=== PATIENT | female | born 1945 | race Caucasian/White ===

== ENCOUNTER → 2018-05-14 07:41 | Outpatient (CLI) | payer OTHER, SELFPAY ==
--- NOTE | 2018-05-14 07:45 | BI_ITS ---
MAMMOGRAPHY - BILATERAL SCREENING REASON FOR EXAM: Female, 72 years old. Routine annual screening examination. PERTINENT HISTORY: Non-contributory. TECHNIQUE: Digital bilateral breast nic (3D mammographic acquisition) in the CC and MLO projections. 2-D mediolateral oblique (MLO) and craniocaudad (CC) views of both breasts were obtained. CAD: Full Field Digital Mammography with Computer Added Detection was performed. COMPARISON: Comparison is made with prior study dated May 04, 2017 and April 17, 2016. FINDINGS: Breast Composition: The breasts are heterogeneously dense, which may obscure small masses. There are no dominant masses or suspicious calcifications. No other significant abnormalities are identified. There has been no significant change since the prior study. BI/SCREENING MAMM (CAD), BILAT IMPRESSION: Stable bilateral screening mammogram. Yearly follow-up mammogram recommended. (A) ASSESSMENT CATEGORY: BIRADS Category 1: Negative. A letter regarding these results will be sent to the patient by the facility within 30 days. Approximately 10% of breast cancers are not detected by mammography. A normal mammogram should not delay biopsy of a clinically suspicious abnormality. [id number] Electronically Signed: Glenn Akers MD at 9:38 EDT Tel [phone], Service support ,
== END ==
PROVIDERS: Family Provider Family Medicine; PCP Family Medicine; Visit Provider Obstetrics & Gynecology
DX: Z12.31 Encounter for screening mammogram for malignant neoplasm of breast (principal)
CPT/HCPCS: 77063; 77067

== ENCOUNTER → 2019-05-20 07:01 | Outpatient (CLI) | payer OTHER, SELFPAY ==
--- NOTE | 2019-05-20 07:04 | BI_ITS ---
MAMMOGRAPHY - BILATERAL SCREENING REASON FOR EXAM: Female, 73 years old. Routine annual screening examination. PERTINENT HISTORY: Non-contributory. TECHNIQUE: Digital bilateral breast maurisio (3D mammographic acquisition) in the CC and MLO projections. 2-D mediolateral oblique (MLO) and craniocaudad (CC) views of both breasts were obtained. CAD: Full Field Digital Mammography with Computer Added Detection was performed. COMPARISON: Comparison is made with prior study dated May 14, 2018 and May 04, 2017. FINDINGS: Breast Composition: The breasts are heterogeneously dense, which may obscure small masses. There are no dominant masses or suspicious calcifications. No other significant abnormalities are identified. There has been no significant change since the prior study. BI/SCREEN MAMM (CAD) W/MAURISIO BILAT IMPRESSION: Stable bilateral screening mammogram. Yearly follow-up mammogram recommended. (A) ASSESSMENT CATEGORY: BIRADS Category 1: Negative. A letter regarding these results will be sent to the patient by the facility within 30 days. Approximately 10% of breast cancers are not detected by mammography. A normal mammogram should not delay biopsy of a clinically suspicious abnormality. [id number] Electronically Signed: Glenn Akers, at 9:25 EDT , Service support ,
== END ==
PROVIDERS: Family Provider Family Medicine; PCP Family Medicine; Referring Provider Obstetrics & Gynecology; Visit Provider Obstetrics & Gynecology
DX: Z12.31 Encounter for screening mammogram for malignant neoplasm of breast (principal)
CPT/HCPCS: 77063; 77067

== ENCOUNTER → 2020-07-13 10:56 | Outpatient (CLI) | payer MEDICARE, SELFPAY ==
[2020-07-02 08:35] VITALS: BMI 20.1
--- NOTE | 2020-07-13 10:58 | BI_ITS ---
MAMMOGRAPHY - BILATERAL SCREENING REASON FOR EXAM: Female, 75 years old. Routine annual screening examination. PERTINENT HISTORY: Non-contributory. TECHNIQUE: Digital bilateral breast maurisio (3D mammographic acquisition) in the CC and MLO projections. 2-D mediolateral oblique (MLO) and craniocaudad (CC) views of both breasts were obtained. CAD: Full Field Digital Mammography with Computer Added Detection was performed. COMPARISON: Comparison is made with prior study 05/20/2019 and 05/14/2018. FINDINGS: Breast Composition: The breasts are heterogeneously dense, which may obscure small masses. There are no dominant masses or suspicious calcifications. No other significant abnormalities are identified. There has been no significant change since the prior study. BI/SCREEN MAMM (CAD) W/MAURISIO BILAT IMPRESSION: Stable bilateral screening mammogram. Yearly follow-up mammogram recommended. (A) ASSESSMENT CATEGORY: BIRADS Category 1: Negative. A letter regarding these results will be sent to the patient by the facility within 30 days. Approximately 10% of breast cancers are not detected by mammography. A normal mammogram should not delay biopsy of a clinically suspicious abnormality. [id number] Electronically Signed: Glenn Akers, at 12:31 EDT , Service support ,
== END ==
PROVIDERS: PCP Family Medicine; Referring Provider Student in an Organized Health Care Education/Training Program; Visit Provider Student in an Organized Health Care Education/Training Program
DX: Z12.31 Encounter for screening mammogram for malignant neoplasm of breast (principal)
CPT/HCPCS: 77063; 77067

== ENCOUNTER → 2021-08-23 13:06 | Outpatient (CLI) | payer MEDICARE, SELFPAY ==
--- NOTE | 2021-08-23 13:09 | BI_ITS ---
MAMMOGRAPHY - BILATERAL SCREENING REASON FOR EXAM: Female, 76 years old. Routine annual screening examination. PERTINENT HISTORY: Non-contributory. TECHNIQUE: Digital bilateral breast maurisio (3D mammographic acquisition) in the CC and MLO projections. 2-D mediolateral oblique (MLO) and craniocaudad (CC) views of both breasts were obtained. CAD: Full Field Digital Mammography with Computer Added Detection was performed. COMPARISON: Comparison is made with prior study 07/13/2020 and 05/20/2019. FINDINGS: Breast Composition: The breasts are heterogeneously dense, which may obscure small masses. There are no dominant masses or suspicious calcifications. No other significant abnormalities are identified. There has been no significant change since the prior study. BI/SCRN MAMM (CAD)W/MAURISIO BILAT IMPRESSION: Stable bilateral screening mammogram. Yearly follow-up mammogram recommended. (A) ASSESSMENT CATEGORY: BIRADS Category 1: Negative. A letter regarding these results will be sent to the patient by the facility within 30 days. Approximately 10% of breast cancers are not detected by mammography. A normal mammogram should not delay biopsy of a clinically suspicious abnormality. [id number] Electronically Signed: Glenn Akers MD at 14:19 EST , Service support ,
== END ==
PROVIDERS: PCP Family Medicine; Referring Provider Student in an Organized Health Care Education/Training Program; Visit Provider Student in an Organized Health Care Education/Training Program
DX: Z12.31 Encounter for screening mammogram for malignant neoplasm of breast (principal)
CPT/HCPCS: 77063; 77067

== ENCOUNTER → 2022-09-03 | Outpatient (CLI) | payer MEDICARE, SELFPAY | END | disposition home or self-care (01) | LOC: WOBLAB 11:07 | PROVIDERS: PCP Family Medicine; Visit Provider Student in an Organized Health Care Education/Training Program | DX: N39.0 Urinary tract infection, site not specified (principal) | CPT/HCPCS: 36415; 87086; 87088 ==

== ENCOUNTER → 2022-09-12 | Outpatient (CLI) | payer MEDICARE, SELFPAY ==
--- NOTE | 2022-09-12 14:03 | BI_ITS ---
MAMMOGRAPHY - BILATERAL SCREENING REASON FOR EXAM: Female, 77 years old. Routine annual screening examination. PERTINENT HISTORY: Non-contributory. TECHNIQUE: Digital bilateral breast maurisio (3D mammographic acquisition) in the CC and MLO projections. 2-D mediolateral oblique (MLO) and craniocaudad (CC) views of both breasts were obtained. CAD: Full Field Digital Mammography with Computer Added Detection was performed. COMPARISON: Comparison is made with prior study dated 08/23/2021 and 07/13/2020. FINDINGS: Breast Composition: The breasts are heterogeneously dense, which may obscure small masses. There are no dominant masses or suspicious calcifications. No other significant abnormalities are identified. There has been no significant change since the prior study. BI/SCRN MAMM (CAD)W/MAURISIO BILAT IMPRESSION: Stable bilateral screening mammogram. Yearly follow-up mammogram recommended. (A) ASSESSMENT CATEGORY: BIRADS Category 1: Negative. A letter regarding these results will be sent to the patient by the facility within 30 days. Approximately 10% of breast cancers are not detected by mammography. A normal mammogram should not delay biopsy of a clinically suspicious abnormality. [id number] Electronically Signed: Glenn Akers MD at 15:13 EST ,
== END | disposition home or self-care (01) ==
LOC: OPBI 14:01
PROVIDERS: PCP Family Medicine; Referring Provider Student in an Organized Health Care Education/Training Program; Visit Provider Student in an Organized Health Care Education/Training Program
DX: Z12.31 Encounter for screening mammogram for malignant neoplasm of breast (principal)
CPT/HCPCS: 77063; 77067

== ENCOUNTER → 2023-10-15 | Outpatient (CLI) | payer MEDICARE, SELFPAY ==
--- NOTE | 2023-10-15 10:58 | BI_ITS ---
MAMMOGRAPHY - BILATERAL SCREENING REASON FOR EXAM: Female, 78 years old. Routine annual screening examination. PERTINENT HISTORY: Non-contributory. TECHNIQUE: Digital bilateral breast maurisio (3D mammographic acquisition) in the CC and MLO projections. 2-D mediolateral oblique (MLO) and craniocaudad (CC) views of both breasts were obtained. CAD: Full Field Digital Mammography with Computer Added Detection was performed. COMPARISON: Comparison is made with prior study dated September 12, 2022 and August 23, 2021. FINDINGS: Breast Composition: The breasts are heterogeneously dense, which may obscure small masses. There are no dominant masses or suspicious calcifications. No other significant abnormalities are identified. There has been no significant change since the prior study. BI/SCRN MAMM (CAD)W/MAURISIO BILAT IMPRESSION: Stable bilateral screening mammogram. Yearly follow-up mammogram recommended. (A) ASSESSMENT CATEGORY: BIRADS Category 1: Negative. A letter regarding these results will be sent to the patient by the facility within 30 days. Approximately 10% of breast cancers are not detected by mammography. A normal mammogram should not delay biopsy of a clinically suspicious abnormality. [id number] Electronically Signed: Glenn Akers MD at 13:55 EST ,
--- OUTSIDE RECORDS SUMMARY | 2023-10-15 11:44 | XMS RPT_ITS | CCD ---
Author Name Unknown Address [address] [place] [address] Organization [facility] Care Team Providers Care Police Officer Booking Name Role Phone Iva Gaston Unavailable Unavailable Iva Gaston Unavailable Unavailable Shu Nicholson Unavailable Unavailable GEORGE WARD DO Primary Care Physician [phone] Marleen PT, Christina Unavailable Unavailable HERI AMES, DR BENITEZ Attending UnavailGEORGE Nicole DO Primary Care Unavailable GEORGE WARD DO Primary Care Unavailable GEORGE WARD DO Attending Unavailable TUYET JERRY CNP Attending UnavailGEORGE Nicole DO Primary Care Unavailable GEORGE WARD DO Primary Care Unavailable DR EMMANUEL LIRIANO MD Attending UnavailGEORGE Nicole DO Primary Care Unavailable GEORGE WARD DO Attending Unavailable DR EMMANUEL LIRIANO MD Attending UnavailGEORGE Nicole DO Primary Care Unavailable MARCELINO CHESTER DO Attending Unavailable GEORGE WARD DO Primary Care Unavailable DR EMMANUEL LIRIANO MD Attending UnavailGEORGE Nicole DO Primary Care Unavailable IVANA LEWIS CNP Attending Unavailable GEORGE WARD DO Primary Care Unavailable MARCELINO CHESTER DO Attending Unavailable GEORGE WARD DO Primary Care Unavailable Allergies Allergy Classification Reported Allergen(s) Allergy Type Date of Onset Reaction(s) Facility (20 sources) etanercept; Translations: [Etanercept] drug allergy 5 Rash [facility] Work Phone: (20 sources) hydroxychloroquine; Translations: [Hydroxychloroquine] drug allergy 5 Abdominal pain [facility] Work Phone: [phone] (3 sources) nitrofurantoin drug allergy 5 [facility] Work Phone: [phone] (20 sources) sulfamethoxazole / trimethoprim; Translations: [Sulfamethoxazole / Trimethoprim] drug allergy 5 Rash [facility] Work Phone: [phone] (17 sources) NITROFURANTOIN, MACROCRYSTALS / Nitrofurantoin, Monohydrate; Translations: [nitrofurantoin] Drug Allergy Altered sensation of skin (finding) [facility] Work Phone: Medications Current Medications Medication Drug Class(es) Dates Sig (Normalized) Sig (Original) 1 ml abatacept 125 mg/ml prefilled syringe (18 sources) Selective T Cell Costimulation Modulator Start: 05-24-2019 [place] Prefilled Syringe 125 mg/mL subcutaneous solution Dose = 125 mg, Subcutaneous, qWeek, (rotate injection sites), 4 EA, 0 Refill(s), Syringe Start Date: 05/24/19 Status: Ordered Completed/Discontinued Medications Medication Drug Class(es) Dates Sig (Normalized) Sig (Original) cefdinir 300 mg oral capsule (5 sources) Cephalosporin Antibacterial Start: 02-27-2022 cefdinir 300 mg oral capsule Dose : 300 mg = 1 cap(s), Oral, q12h, 0 Refill(s), 50.4 Start Date: 02/27/22 Status: Ordered cholecalciferol 2000 unt oral tablet (9 sources) Vitamin D Start: 01-10-2016 take 1 tablet by mouth once daily VITAMIN D 2000 UNIT TABS One tablet by mouth daily CHOLECALCIFEROL [id number] Ken Huertas MD Problems Active Problems Problem Classification Problem Date Documented Da te Episodic/Chronic Cardiac dysrhythmias (17 sources) Bradycardia 12-13-2019 Episodic Chronic ulcer of skin (1 source) Pressure ulcer of buttock stage 1 09-16-2023 Chronic Complications of surgical procedures or medical care (3 sources) Postoperative hypothyroidism; Translations: [Postprocedural hypothyroidism] Chronic Disorders of lipid metabolism (20 sources) Hyperlipidemia; Translations: [Hypercholesterolemi a] Onset: 01-04-2016 01-04-2016 Chronic Heart valve disorders (20 sources) Mitral valve prolapse; Translations: [Mitral valve regurgitation] Onset: 01-04-2016 01-04-2016 Chronic Mycoses (17 sources) Candidiasis of vulva 09-09-2019 Episodic Osteoarthritis (2 sources) Osteoarthritis of knee; Translations: [Bilateral primary osteoarthritis of knee] Chronic Other aftercare (3 sources) Long-term current use of drug therapy; Translations: [Other word processing specialist (current) drug therapy] Episodic Other aftercare (1 source) Drug monitoring done; Translations: [Encounter for therapeutic drug level monitoring] Episodic Other bone disease and musculoskeletal deformities (17 sources) Osteopenia 09-09-2019 Episodic Other endocrine disorders (7 sources) Hypoglycemia 10-31-2022 Chronic Other eye disorders (1 source) Exophthalmos; Translations: [Unspecified exophthalmos] Chronic Other inflammatory condition of skin (17 sources) Psoriasis 09-09-2019 Chronic Other liver diseases (17 sources) Elevated liver enzymes level 12-13-2019 Episodic Other nutritional; endocrine; and metabolic disorders (5 sources) Body mass index less than 20 03-17-2023 Episodic Other screening for suspected conditions (not mental disorders or infectious disease) (5 sources) Viral screening status 03-17-2023 Episodic Other skin disorders (1 source) Non-scarring alopecia; Translations: [Nonscarring hair loss, unspecified] Episodic Residual codes; unclassified (16 sources) Needs influenza immunization 09-03-2021 Episodic Rheumatoid arthritis and related disease (20 sources) Rheumatoid arthritis; Translations: [Rheumatoid arthritis of multiple joints] 09-09-2019 Chronic Screening and history of mental health and substance abuse codes (8 sources) Ex-tobacco user 08-27-2022 Episodic Sprains and strains (11 sources) Other specified sites of sprains and strains; Translations: [Shoulder strain] Onset: 03-28-2015 04-01-2015 Episodic Thyroid disorders (20 sources) Thyroid eye disease; Translations: [Hypothyroidism] 04-26-2019 Chronic Unclassified (20 sources) Patient encounter status 12-13-2019 Unclassified (8 sources) Influenza vaccination status 08-27-2022 Unclassified (5 sources) Mild pulmonary hypertension 03-17-2023 Urinary tract infections (2 sources) Urinary tract infectious disease 06-04-2023 Episodic Past or Other Problems Problem Classification Problem Date Documented Da te Episodic/Chronic Abdominal pain (8 sources) Lower abdominal pain; Translations: [Suprapubic pain] Onset: 06-04-2023 06-04-2023 Episodic Other aftercare (3 sources) Other jail (current) drug therapy; Translations: [Other word processing specialist (current) drug therapy] Onset: 01-04-2016 01-04-2016 Episodic Unclassified (3 sources) FH: Hypertension; Translations: [Family history of ischemic heart disease and other diseases of the circulatory system] 01-10-2016 Episodic Results Test Name Value Interpretation Reference Range Facil ity Vital Signs Date Time Vital Sign Value Performing Clinician Caty zavala 03-20-2017 09:16-0400 BMI (Body Mass Index) 20.1 kg/m2 Iva [facility] Work Phone: 03-20-2017 09:16-0400 BP Diastolic 64 mm[Hg] Iva Alek [facility] Work Phone: 03-20-2017 09:16-0400 BP Systolic 102 mm[Hg] Iva [facility] Work Phone: 03-20-2017 09:16-0400 Pulse (Heart Rate) 60 /min Iva [facility] Work Phone: 03-20-2017 09:16-0400 Respiratory Rate 16 /min Iva [facility] Work Phone: 03-20-2017 09:16-0400 Weight 53.52 kg Ivatameka [facility] Work Phone: 01-10-2016 15:26-0400 BMI (Body Mass Index) 20.1 kg/m2 [facility]u [facility] Work Phone: 01-10-2016 15:26-0400 BP Diastolic 60 mm[Hg] Joeyumi DeFinis [facility] Work Phone: 01-10-2016 15:26-0400 BP Systolic 98 mm[Hg] Shu DeFinis [facility] Work Phone: 01-10-2016 15:26-0400 BSA (Body Surface Area) 1.57 m2 [facility] Work Phone: 01-10-2016 15:26-0400 Pulse (Heart Rate) 64 /min [facility]u [facility] Work Phone: 01-10-2016 15:26-0400 Respiratory Rate 12 /min [facility] Work Phone: 01-10-2016 15:26-0400 Weight 53.52 kg Shu [facility] Work Phone: 03-28-2015 11:25-0400 Body Temperature 97.1 [degF] [facility] Work Phone: 03-28-2015 11:25-0400 Height 163.19 cm [facility]u [facility] Work Phone: 03-28-2015 11:25-0400 Pulse Oximetry 100 % [facility]u [facility] Work Phone: Encounters Encounter Date Encounter Type Care Provider Facility Start: 09-22-2023 End: 09-23-[address] EMMANUEL LIRIANO MD Facility:B Start: 09-22-2023 End: 09-22-[address] EMMANUEL LIRIANO MD [facility] Start: 06-04-2023 End: 06-09-2023 ambulatory GEORGE WARD DO Facility:B Start: 06-04-2023 End: 06-08-2023 Outreach Lab GEORGE WARD DO [facility] Start: 06-03-2023 End: 06-04-2023 ambulatory GEORGE WARD DO Facility:B Start: 06-03-2023 End: 06-03-[address] EMMANUEL LIRIANO MD [facility] Start: 03-17-2023 End: 03-18-2023 ambulatory TUYET JERRY CNP Facility:B Start: 03-17-2023 End: 03-17-2023 Patient encounter procedure GEORGE WARD DO [facility] Start: 03-17-2023 End: 03-17-2023 Well adult monitoring check done GEORGE WARD DO [facility] Start: 03-11-2023 End: 03-12-[address] EMMANUEL LIRIANO MD Facility:B Start: 03-11-2023 End: 03-11-[address] EMMANUEL LIRIANO MD [facility] Start: 02-27-2023 End: 02-28-2023 ambulatory IVANA LEWIS [facility] Facility:B Start: 02-17-2023 End: 02-18-2023 ambulatory MARCELINO CHESTER DO Facility:B Start: 12-09-2022 End: 12-10-[address] EMMANUEL LIRIANO MD Facility:B Start: 12-09-2022 End: 12-09-[address] EMMANUEL LIRIANO MD [facility] Start: 10-29-2022 End: 10-30-2022 ambulatory MARCELINO CHESTER DO Facility:B Start: 10-29-2022 End: 10-29-2022 Patient encounter procedure MARCELINO CHESTER DO [facility] Start: 07-23-2022 End: 07-23-[address] EMMANUEL LIRIANO MD [facility] Start: 06-26-2022 End: 06-26-2022 Patient encounter procedure MARCELINO CHESTER DO [facility] Start: 04-24-2022 End: 04-24-[address] EMMANUEL LIRIANO MD [facility] Start: 04-10-2022 End: 04-10-2022 Patient encounter procedure TUYET JERRY GENERAL SUPERINTENDENT [facility] Start: 03-03-2022 End: 03-03-2022 Patient encounter procedure SABINA SHELTON DO [facility] Start: 02-11-2022 End: 02-11-2022 Patient encounter procedure MARCELINO Bledsoe HENRIK DO [facility] Start: 01-28-2022 End: 01-28-[address] EMMANUEL LIRIANO MD [facility] Start: 10-31-2021 End: 10-31-[address] EMMANUEL LIRIANO MD [facility] Start: 08-26-2021 End: 08-26-2021 Patient encounter procedure GEORGE M ED DO [facility] Procedures Date Procedure Procedure Detail Performing Clinician Start: 03-20-2017 End: 03-20-2017 Follow Up Appt 1 year Ken Muñoz Start: 03-20-2017 End: 03-20-2017 PFM Ken Huertas MD Start: 01-10-2016 End: 01-10-2016 Electrocardiogram, complete Ken méndez MD Start: 01-10-2016 End: 03-17-2017 Follow Up Appt 1 year Ken Muñoz Start: 01-10-2016 End: 03-17-2017 Follow Up Appt Other Ken Huertas MD Start: 01-10-2016 End: 03-17-2017 PFM Ken Huertas MD Start: 03-28-2015 End: 03-29-2015 Documentation of current medications Gaby Kay Work Phone: Excision & repair ey elid < one-fourth lid margin GEORGE WARD DO Extraction of cataract KRIST IN ED DO Plan of Treatment Date Care Activity Detail Author Start: 03-20-2017 End: 03-20-2017 Appointment Appointment [facility] Work Phone: Start: 03-20-2017 End: 03-20-2017 Follow Up Appt 1 year Follow Up Appt 1 year [facility] Work Phone: Start: 03-20-2017 End: 03-20-2017 PFM PFM [facility] Work Phone: Start: 01-10-2016 End: 01-10-2016 Electrocardiogram, complete EKG (In office) [facility] Work Phone: Start: 01-10-2016 End: 03-17-2017 Follow Up Appt 1 year Follow Up Appt 1 year [facility] Work Phone: Start: 01-10-2016 End: 03-17-2017 Follow Up Appt Other Follow Up Appt Other [facility] Work Phone: Start: 01-10-2016 End: 03-17-2017 PFM PFM [facility] Work Phone: Immunizations Immunization Date Immunization Notes Care Provider [facility] 08-13-2023 RSV vaccine preF3, recombinant DR EMMANUEL LIRIANO MD [facility] 08-04-2023 SARS-CoV-2 (COVID-19 ) [id number] DR EMMANUEL LIRIANO MD [facility] 07-21-2023 influenza virus vacc ine, unspecified formulation DR EMMANUEL LIRIANO MD [facility] 02-11-2023 SARS-CoV-2 (CV19)mRNA-[address] EMMANUEL LIRIANO MD [facility] 02-11-2023 SARSCoV2 (CV19)mRNA-1273(6y+ bival valdemar GEORGE WARD DO [facility] 07-28-2022 influenza virus vacc ine, unspecified formulation MARCELINO CHESTER DO [facility] 07-15-2022 SARS-CoV-2 (CV19)mRNA-[address] EMMANUEL LIRIANO MD [facility] 07-15-2022 SARSCoV2 (CV19)mRNA-1273(6y+ bival valdemar MARCELINO CHESTER DO [facility] 01-15-2022 SARS-CoV-2 (COVID-19 ) mRNA-1273 vaccine TUYET CLARITZA MILLER [facility] 07-16-2021 influenza virus vacc ine, unspecified formulation DR EMMANUEL LIRIANO MD [facility] 06-12-2021 COVID-19, mRNA, LNP- S, PF, 100 mcg/ 0.5 mL dose; Translations: [Moderna COVID-19 Vaccine] GEORGE WARD DO [facility] 01-01-2021 COVID-19, mRNA, LNP- S, PF, 100 mcg/ 0.5 mL dose; Translations: [Moderna COVID-19 Vaccine] GEORGE WARD DO [facility] 12-04-2020 COVID-19, mRNA, LNP- S, PF, 100 mcg/ 0.5 mL dose; Translations: [Moderna COVID-19 Vaccine] GEORGE WARD DO [facility] 06-27-2020 influenza virus vacc ine, unspecified formulation GEORGE WARD DO [facility] 07-18-2019 influenza virus vacc ine, unspecified formulation GEORGE LIONLAY DO [facility] 07-16-2018 zoster vaccine recombinant GEORGE WARD DO [facility] 07-01-2018 influenza virus vacc ine, unspecified formulation GEORGE WARD DO [facility] 06-23-2018 zoster vaccine recombinant GEORGE WARD DO [facility] 04-13-2018 zoster vaccine recombinant GEORGE WARD DO [facility] 07-21-2017 influenza virus vacc ine, unspecified formulation GEORGE ED DO [facility] 06-21-2016 influenza virus vacc ine, unspecified formulation GEORGE ED DO [facility] 07-12-2015 influenza virus vacc ine, unspecified formulation GEORGE WARD DO [facility] 07-05-2015 pneumococcal conjuga te vaccine, 13 valent GEORGE ED DO [facility] 08-12-2014 influenza virus vacc ine, unspecified formulation GEORGE WARD DO [facility] 08-12-2014 pneumococcal polysaccharide vaccine, 23 valent GEORGE WARD DO [facility] 07-12-2014 pneumococcal polysaccharide vaccine, 23 valent GEORGE WARD DO [facility] 07-08-2012 influenza virus vacc ine, unspecified formulation GEORGE WARD DO [facility] 08-15-2009 zoster vaccine, live GEORGE ED DO [facility] 07-07-2006 tetanus toxoid, redu lilliam diphtheria toxoid, and acellular pertussis vaccine, adsorbed GEORGE ED DO [facility] Payers Date Payer Category Payer Unknown [id number] 1945 Unknown [id number] 2.16.8 [id number] 1945 Unknown [id number] 2.16.8 [id number] 1945 Unknown [id number] 2.16.8 [id number] 1945 Unknown [id number] 2.16.8 [id number] 1945 Unknown [id number] 2.16.8 [id number] 1945 Unknown [id number] 2.16.8 [id number] 1945 Unknown [id number] 2.16.8 [id number] 1945 Unknown [id number] 2.16.8 [id number] 1945 Unknown [id number] 2.16.8 [id number] 1945 Unknown [id number] 2.16.8 [id number] Social History Date Type Detail Facility Start: 04-26-2019 Ex-smoker (finding) [facility] Clinical Notes 06-07-2023 LaboratoryLaboratoryLaboratoryRadiologyRadiologyRadiology Note Date & Type Note Facility 06-07-2023 Note . MICRO - Microbiology PROCEDURE: Urine Culture [*1] SOURCE: Urine, Clean Catch BODY SITE: COLLECTED DATE/TIME: 06/04/2023 17:15 EDT RECEIVED DATE/TIME: 06/05/2023 15:08 EDT START DATE/TIME: 06/05/2023 15:08 EDT FREE TEXT SOURCE: FINAL REPORTS Final Report [] Verified Date/Time/Personnel: 06/07/2023 09:18 EDT <10,000 cfu/ml. No Significant growth. Sensitivity not indicated. PRELIMINARY REPORTS Preliminary Report [] Verified Date/Time/Personnel: 06/06/2023 13:06 EDT No growth to date Performing Locations *1: This test was performed at: [facility], [address] [place] [address], [id number] , [facility] [place] Evaluation + Plan note Future Appointments Appointment Date:09/03/2021 09:00:00 AM Scheduled Provider:GEORGE WARD DO Location:[facility] Appointment Type:PC OV Future Scheduled TestsComplete Metabolic Panel 09/05/21 [facility] Evaluation + Plan note Future Appointments Appointment Date:03/06/2022 09:00:00 AM Scheduled Provider:GEORGE WARD DO Location:[facility] Appointment Type:PC Wellness Medicare Future Scheduled TestsComplete Metabolic Panel 09/05/21 [facility] Evaluation + Plan note Future Appointments Appointment Date:03/06/2022 09:00:00 AM Scheduled Provider:GEORGE WARD DO Location:[facility] Appointment Type:PC Wellness Medicare Appointment Date:10/08/2022 09:00:00 AM Scheduled Provider: Location:[facility] Appointment Type:CV Procedure - AOH Echo Future Scheduled TestsComplete Metabolic Panel 09/05/21 [facility] Evaluation + Plan note Future Appointments Appointment Date:03/06/2022 09:00:00 AM Scheduled Provider:GEORGE WARD DO Location:[facility] Appointment Type:PC Wellness Medicare Appointment Date:10/08/2022 09:00:00 AM Scheduled Provider: Location:[facility] Appointment Type:CV Procedure - AOH Echo [facility] Evaluation + Plan note Future Appointments Appointment Date:08/27/2022 02:00:00 PM Scheduled Provider:GEORGE WARD DO Location:[facility] Appointment Type:PC OV Appointment Date:10/08/2022 09:00:00 AM Scheduled Provider: Location:[facility] Appointment Type:CV Procedure - AOH Echo Future Scheduled TestsMA Mammo Screening Bilateral w/ Gallo 03/06/22 [facility] Evaluation + Plan note Future Appointments Appointment Date:03/17/2023 08:00:00 AM Scheduled Provider:GEORGE WARD DO Location:[facility] Appointment Type:PC Wellness Medicare Future Scheduled TestsMA Mammo Screening Bilateral w/ Gallo 03/06/22 [facility] Evaluation + Plan note Future Appointments Appointment Date:03/17/2023 08:00:00 AM Scheduled Provider:GEORGE WARD DO Location:[facility] Appointment Type:PC Wellness Medicare [facility] Evaluation + Plan note Future Appointments Appointment Date:09/16/2023 02:00:00 PM Scheduled Provider:GEORGE WARD DO Location:[facility] Appointment Type:[facility] Evaluation + Plan note Future Appointments Appointment Date:03/22/2024 09:00:00 AM Scheduled Provider:GEORGE WARD DO Location:[facility] Appointment Type:PC Wellness Medicare Diagnostic Tests PendingQFT-TB Plus (Client Incubated) 09/22/23 Future Scheduled TestsMA Mammo Screening Bilateral w/ Gallo 09/16/23 [facility] Hospital course Narrative No data available for this section [facility] Hospital Discharge instructions No data available for this section [facility] Progress note No data available for this section [facility] Summary Purpose Family History No Family History Records Found Advance Directives No Advanced Directives Records Found Additional Source Comments Care Team (unrecognized sect ion and content) Personnel Name: GEORGE WARD DO Address: [address] [place] [address] Physicians [place], [place] [address] Name: Nataliia Hawley Cleraislinn Vasquez PT Care Team Personnel Name: Nataliia Hawley PT Position: P3 Scheduling - Factory Superintendent Advanced Member Role: Other Name: DO ISA PERDUE DO Position: P3 Physician - Orthopedics Member Role: Orthopaedist Address: Address: [address] [place] [address] [place] Name: GEORGE WARD DO Position: P4 Physician - Primary Care Member Role: Primary Care Physician Address: Address: [address] [place] [address]- Name: REGLA VASQUEZ MD Member Role: Data Entry Supervisor Address: Address: [address] [place] [address], [place] [address] [place] Name: KEN HUERTAS MD Member Role: End User Support Specialist Address: Address: [address] [facility] [address] [place] [address]- Name: CLARITZA DOWD MD Member Role: Orthopaedist Address: Address: [address] [place] [address], [place] [address] [place] Name: EMMANUEL LIRIANO MD Member Role: Hand Icer Address: Address: [address] [facility] [address] [place] [address] [place] Name: MARCELINO CHESTER DO Position: P3 Physician - Endocrinology Member Role: Residential Tech Address: Address: [address] [place] [address] [place] [address] Care Team Related Persons Name: SHAUN FENG Care Team Personnel Name: Nataliia Hawley Cleraislinn Vasquez PT Position: P3 Scheduling - Factory Superintendent Advanced Member Role: Other Name: JOSE OSPINA MD Position: P3 Physician - Gastroenterology Member Role: Guidance And Control System Engineer Address: Address: [address] [place] [address] [place] [address]- Name: GEORGE WARD DO Position: P4 Physician - Primary Care Member Role: Primary Care Physician Address: Address: [address] [place] [address]- Name: REGLA VASQUEZ MD Member Role: Data Entry Supervisor Address: Address: [address] [facility] [address] [place] Name: CLARITZA DOWD MD Member Role: Orthopaedist Address: Address: [address] [facility] [place] [address] [place] Name: IVANA LEWIS CNP Member Role: End User Support Specialist Address: Address: [address] [place] [address]- Name: EMMANUEL LIRIANO MD Member Role: Hand Icer Address: Address: [address] [place] [phone] Name: MARCELINO CHESTER DO Position: P3 Physician - Endocrinology Member Role: Residential Tech Address: Address: [address] [place] [phone] Care Team Related Persons Name: SHAUN FENG Care Team Personnel Name: Marleen Unix Consultant Crhistina PT Position: P3 Scheduling - Factory Superintendent Advanced Member Role: Other Name: JOSE OSPINA MD Position: P3 Physician - Gastroenterology Member Role: Guidance And Control System Engineer Address: Address: [address] [place] [address] [place], [place] [address] Name: GEORGE WARD DO Position: P4 Physician - Primary Care Member Role: Primary Care Physician Address: Address: [address] [place] [address]- Name: REGLA VASQUEZ MD Member Role: Data Entry Supervisor Address: Address: [address] [place] [address] [place] Name: CLARITZA DOWD MD Member Role: Orthopaedist Address: Address: [address] [place] [phone] Name: IVANA LEWIS CNP Member Role: End User Support Specialist Address: Address: [address] [place] [address] [place] Name: EMMANUEL LIRIANO MD Member Role: Hand Icer Address: Address: [address] [place] [address] [place] Name: MARCELINO CHESTER DO Position: P3 Physician - Endocrinology Member Role: Residential Tech Address: Address: [address] [place] [phone] Care Team Related Persons Name: SHAUN FENG Care Team Personnel Name: Nataliia Hawley Clerk Christina PT Position: P3 Scheduling - Factory Superintendent Advanced Member Role: Other Name: JOSE OSPINA MD Position: P3 Physician - Gastroenterology Member Role: Guidance And Control System Engineer Address: Address: [address] [place] [address] [place] [address]- Name: GEORGE WARD DO Position: P4 Physician - Primary Care Member Role: Primary Care Physician Address: Address: [address] [place] [address]- Name: REGLA VASQUEZ MD Member Role: Data Entry Supervisor Address: Address: [address] [place] [phone] [place] Name: CLARITZA DOWD MD Member Role: Orthopaedist Address: Address: [address] [place] [phone] [place] Name: IVANA LEWIS CNP Member Role: End User Support Specialist Address: Address: [address] [place] [address]- Name: EMMANUEL LIRIANO MD Member Role: Hand Icer Address: Address: [address] [place] [phone] [place] Name: MARCELINO CHESTER DO Position: P3 Physician - Endocrinology Member Role: Residential Tech Address: Address: [address] [place] [address] [place] [address] Care Team Related Persons Name: SHAUN FENG Care Team Personnel Name: Nataliia Hawley Cleraislinn Vasquez PT Position: P3 Scheduling - Factory Superintendent Advanced Member Role: Other Name: JOSE OSPINA MD Position: P3 Physician - Gastroenterology Member Role: Guidance And Control System Engineer Address: Address: [address] [place] [address] [place] [address]- Name: GEORGE WARD DO Position: P4 Physician - Primary Care Member Role: Primary Care Physician Address: Address: [address] [place] [phone]- [place] Name: REGLA VASQUEZ MD Member Role: Data Entry Supervisor Address: Address: [address] [place] [address] [place] Name: CLARITZA DOWD MD Member Role: Orthopaedist Address: Address: [address] [place] [phone] [place] Name: IVANA LEWIS CNP Member Role: End User Support Specialist Address: Address: [address] [place] [address]- Name: EMMANUEL LIRIANO MD Member Role: Hand Icer Address: Address: [address] [place] [address] [address] [place] [address] Name: MARCELINO CHESTER DO Position: P3 Physician - Endocrinology Member Role: Residential Tech Address: Address: [address] [facility] [place] [address] Care Team Related Persons Name: SHAUN FENG Care Team Personnel Name: Nataliia Hawley PT Position: P3 Scheduling - Factory Superintendent Advanced Member Role: Other Name: JOSE OSPINA MD Position: P3 Physician - Gastroenterology Member Role: Guidance And Control System Engineer Address: Address: [address] [place] [address] [place] [address] Name: GEORGE WARD DO Position: P4 Physician - Primary Care Member Role: Primary Care Physician Address: Address: [address] [place] [phone]- [place] Name: REGLA VASQUEZ MD Member Role: Data Entry Supervisor Address: Address: [address] [place] [phone] [place] Name: CLARITZA DOWD MD Member Role: Orthopaedist Address: Address: [address] [place] [phone] Name: IVANA LEWIS CNP Member Role: End User Support Specialist Address: Address: [address] [place] [phone]- [place] Name: EMMANUEL LIRIANO MD Member Role: Hand Icer Address: Address: [address] [place] [address] [address] [place] [address] [place] Name: MARCELINO CHESTER DO Position: P3 Physician - Endocrinology Member Role: Residential Tech Address: Address: [address] [place] [address], [place] [address] [place] Care Team Related Persons Name: SHAUN FENG Care Team (unrecognized sect ion and content) Care Team Personnel Name: Nataliia Hawley PT Position: P3 Scheduling - Factory Superintendent Advanced Member Role: Other Name: DO ISA PERDUE DO Position: P3 Physician - Orthopedics Med Service: Admitting Member Role: Orthopaedist Address: Address: [address] [place] [address] [address] [place] [address] [place] Name: GEORGE WARD DO Position: P4 Physician - Primary Care Med Service: Active Provider Member Role: Primary Care Physician Address: Address: [address] [place] [phone]- Name: REGLA VASQUEZ MD Member Role: Data Entry Supervisor Address: Address: [address] [place] [address] [place] Name: KEN HUERTAS MD Member Role: End User Support Specialist Address: Address: [address] [facility] [address] [place] [address]- Name: CLARITZA DOWD MD Member Role: Orthopaedist Address: Address: [address] [place] [address] [place] Name: EMMANUEL LIRIANO MD Member Role: Hand Icer Address: Address: [address] [facility] [address] [place] [address] [place] Name: MARCELINO CHESTER DO Position: P3 Physician - Endocrinology Med Service: Active Provider Member Role: Residential Tech Address: Address: [address] [place] [address], [place] [address] Care Team Related Persons Name: SHAUN FENG Care Team Personnel Name: Nataliia Hawley Cleraislinn Vasquez PT Position: P3 Scheduling - Factory Superintendent Advanced Member Role: Other Name: DO ISA PERDUE DO Position: P3 Physician - Orthopedics Med Service: Admitting Member Role: Orthopaedist Address: Address: [address] [place] [address] [address] [place] [address] Name: GEORGE WARD DO Position: P4 Physician - Primary Care Med Service: Active Provider Member Role: Primary Care Physician Address: Address: [address] [place] [phone]- [place] Name: REGLA VASQUEZ MD Member Role: Data Entry Supervisor Address: Address: [address] [facility] [place] [address] [place] Name: KEN HUERTAS MD Member Role: End User Support Specialist Address: Address: [address] [facility] [address] [place] [address]- [place] Name: CLARITZA DOWD MD Member Role: Orthopaedist Address: Address: [address] [place] [address] Name: EMMANUEL LIRIANO MD Member Role: Hand Icer Address: Address: [address] [facility] [address] [place] [address] Name: MARCELINO CHESTER DO Position: P3 Physician - Endocrinology Med Service: Active Provider Member Role: Residential Tech Address: Address: [address] [place] [address] Care Team Related Persons Name: SHAUN FENG Care Team Personnel Name: Marleen Unix Consultant Chrisitna PT Position: P3 Scheduling - Factory Superintendent Advanced Member Role: Other Name: DO ISA PERDUE DO Position: P3 Physician - Orthopedics Med Service: Admitting Member Role: Orthopaedist Address: Address: [facility] [address] [place] [address] Name: GEORGE WARD DO Position: P4 Physician - Primary Care Med Service: Active Provider Member Role: Primary Care Physician Address: Address: [address] [place] [address] Name: REGLA VASQUEZ MD Member Role: Data Entry Supervisor Address: Address: [address] [place] [address] [place] Name: KEN HUERTAS MD Member Role: End User Support Specialist Address: Address: [address] [facility] [address] [place] [address]- [place] Name: CLARITZA DOWD MD Member Role: Orthopaedist Address: Address: [address] [place] [address] [place] Name: EMMANUEL LIRIANO MD Member Role: Hand Icer Address: Address: [address] [facility] [address] [place] [address] [place] Name: MARCELINO CHESTER DO Position: P3 Physician - Endocrinology Med Service: Active Provider Member Role: Residential Tech Address: Address: [address] [place] [address] Care Team Related Persons Name: SHAUN FENG Care Team Personnel Name: Marleen Unix Consultant Christina PT Position: P3 Scheduling - Factory Superintendent Advanced Member Role: Other Name: DO ISA PERDUE DO Position: P3 Physician - Orthopedics Med Service: Admitting Member Role: Orthopaedist Address: Address: [address] [facility] [address] [place] [address] Name: GEORGE WARD DO Position: P4 Physician - Primary Care Med Service: Active Provider Member Role: Primary Care Physician Address: Address: [address] [place] [address]- Name: REGLA VASQUEZ MD Member Role: Data Entry Supervisor Address: Address: [address] [facility] [place] [address] [place] Name: KEN HUERTAS MD Member Role: End User Support Specialist Address: Address: [address] [facility] [address] [place] [address]- Name: CLARITZA DOWD MD Member Role: Orthopaedist Address: Address: [address] [place] [address] [place] Name: EMMANUEL LIRIANO MD Member Role: Hand Icer Address: Address: [address] [facility] [address] [place] [address] [place] Name: MARCELINO CHESTER DO Position: P3 Physician - Endocrinology Med Service: Active Provider Member Role: Residential Tech Address: Address: [address] [place] [address] Care Team Related Persons Name: SHAUN FENG Care Team Personnel Name: Marleen Unix Consultant Christina PT Position: P3 Scheduling - Factory Superintendent Advanced Member Role: Other Name: DO ISA PERDUE DO Position: P3 Physician - Orthopedics Member Role: Orthopaedist Address: Address: [facility] [address] [place] [address] [place] Name: GEORGE WARD DO Position: P4 Physician - Primary Care Member Role: Primary Care Physician Address: Address: [address] [place] [address]- Name: REGLA VASQUEZ MD Member Role: Data Entry Supervisor Address: Address: [address] [facility] [place] [address] [place] Name: KNE HUERTAS MD Member Role: End User Support Specialist Address: Address: [address] [facility] [address] [place] [address]- [place] Name: CLARITZA DOWD MD Member Role: Orthopaedist Address: Address: [address] [place] [address] [place] Name: EMMANUEL LIRIANO MD Member Role: Hand Icer Address: Address: [facility] [facility] [address] [place] [address] Name: MARCELINO CHESTER DO Position: P3 Physician - Endocrinology Member Role: Residential Tech Address: Address: [address] [place] [address] Care Team Related Persons Name: SHAUN FENG Care Team Personnel Name: Marleen Unix Consultant Christina PT Position: P3 Scheduling - Factory Superintendent Advanced Member Role: Other Name: DO ISA PERDUE DO Position: P3 Physician - Orthopedics Member Role: Orthopaedist Address: Address: [address] [place] [address] [address] [place] [address] Name: GEORGE WARD DO Position: P4 Physician - Primary Care Member Role: Primary Care Physician Address: Address: [address] [place], [place] [address] Name: REGLA VASQUEZ MD Member Role: Data Entry Supervisor Address: Address: [address] [place] [address] [place] Name: KEN HUERTAS MD Member Role: End User Support Specialist Address: Address: [address] [facility] [address] [place] [address]- [place] Name: CLARITZA DOWD MD Member Role: Orthopaedist Address: Address: [address] [place] [address] [place] Name: EMMANUEL LIRIANO MD Member Role: Hand Icer Address: Address: [address] [facility] [address] [place] [address] [place] Name: MARCELINO CHESTER DO Position: P3 Physician - Endocrinology Member Role: Residential Tech Address: Address: [address] [place] [address] Care Team Related Persons Name: SHAUN FENG INFORMATION SOURCE (unrecogn ized section and content) FOR RECORDS PERTAINING TO PATIENTS WHO ARE OR HAVE BEEN ENROLLED IN A CHEMICAL DEPENDENCY/SUBSTANCEABUSE PROGRAM, SOME INFORMATION MAY BE OMITTED. This clinical summary was aggregated from multiple sources. Caution should be exercised in using it in the provision of clinical care. This summary normalizes information from multiple sources, and as a consequence, information in this document may materially change the coding, format and clinical context of patient data. In addition, data may be omitted in some cases. CLINICAL DECISIONS SHOULD BE BASED ON THE PRIMARY CLINICAL RECORDS. [facility]. provides no warranty or guarantee of the accuracy or completeness of information in this document.
== END | disposition home or self-care (01) ==
LOC: OPBI 10:57
PROVIDERS: PCP Family Medicine; Referring Provider Family Medicine; Visit Provider Family Medicine
DX: Z12.31 Encounter for screening mammogram for malignant neoplasm of breast (principal)
CPT/HCPCS: 77063; 77067

== ENCOUNTER → 2024-01-29 | Outpatient (CLI) | payer SELFPAY ==
[2024-01-29 15:06] LABS: SERUM TEARS COLLECTION SPECIMEN PROCESSED
== END | disposition home or self-care (01) ==
PROVIDERS: PCP Family Medicine; Referring Provider Ophthalmology; Visit Provider Ophthalmology
DX: H04.123 Dry eye syndrome of bilateral lacrimal glands (principal)

== ENCOUNTER → 2024-12-06 | Outpatient (CLI) | payer MEDICARE, SELFPAY ==
--- NOTE | 2024-12-06 13:00 | BI_ITS ---
PROCEDURE: SCRN MAMM (CAD)W/MAURISIO BILAT REASON FOR EXAM: F, Age 79 y/o, presents for annual screening mammogram. There is no family history of breast cancer. TECHNIQUE: Bilateral screening digital breast tomosynthesis with 2D and 3D images. Computer aided detection. COMPARISON: 10/15/2023, 09/12/2022 FINDINGS: There are scattered areas of fibroglandular density. No suspicious masses, areas of developing architectural distortion, or suspicious calcifications. BI/SCRN MAMM (CAD)W/MAURISIO BILAT IMPRESSION: There is no mammographic evidence of malignancy in either breast. BI-RADS 1: NEGATIVE. RECOMMEND ANNUAL MAMMOGRAPHIC SCREENING. Follow-up code: Routine Follow-up The patient will be notified of the results by letter. Reading Location: [id number]
== END | disposition home or self-care (01) ==
LOC: OPBI 12:59
PROVIDERS: PCP Family Medicine; Referring Provider Family Medicine; Visit Provider Family Medicine
DX: Z12.31 Encounter for screening mammogram for malignant neoplasm of breast (principal)
CPT/HCPCS: 77063; 77067

== ENCOUNTER → 2025-07-28 | Outpatient (CLI) | payer MEDICARE, SELFPAY ==
--- NOTE | 2025-07-28 10:22 | MRI_ITS ---
PROCEDURE: SPINE LUMBAR (ROUTINE) 07/28/2025 REASON FOR EXAM: PAIN, RADICULOPATHY TECHNIQUE: Procedure Code: MRISPL Modality: MR Procedure: SPINE LUMBAR (ROUTINE) FINDINGS: Normal vertebral body height without compression deformity. No impingement of the conus. There are Modic 1 degenerative endplate marrow changes at L3-4 most prominently. Axial images demonstrate no visible paravertebral mass lesion. At L1-2 dorsal osteophytic spur is present with mild right lateral recess narrowing without nerve impingement. At L2-3 inferior foraminal narrowing on the right of moderate degree without direct compression of the right L2 nerve. Dorsal osteophytic spur. At L3-4 mild canal narrowing and degenerative retrolisthesis. Disc and osteophyte narrow the left lateral recess without direct L4 nerve impingement. There is a far left lateral bulge at this level which does abut the far left L3 nerve. At L4-5 facet arthrosis with a mild degree of canal narrowing L5-S1 is positive for facet degeneration. MRI/Spine Lumbar (Routine) IMPRESSION: 1. Moderate right L2 foraminal stenosis. 2. Mild canal narrowing at L3-4 with left lateral recess stenosis. Far left la teral bulge of the same level abuts the far left L3 nerve. 3. Mild canal narrowing at L4-5 Reading Location[facility]
== END | disposition home or self-care (01) ==
PROVIDERS: PCP Family Medicine; Referring Provider Student in an Organized Health Care Education/Training Program; Visit Provider Student in an Organized Health Care Education/Training Program
DX: M51.362 Other intervertebral disc degeneration, lumbar region with discogenic back pain and lower extremity pain (principal)
CPT/HCPCS: 72148